=== PATIENT | male | born 1995 | race Caucasian/White ===

== ENCOUNTER 2017-12-24 13:40 | Emergency (ER) | payer BC ==
[2017-12-24] MEDS ORDERED: Sodium Chloride 0.9% 1,000 ML IV STA (13:54)
[2017-12-24] MEDS ORDERED: Sodium Chloride 0.9% 10 ML Syringe FLUSH PRN (13:54)
[2017-12-24] MEDS ORDERED: Ondansetron 4 MG/2 ML SDV IVPUSH ONE (13:54)
--- NOTE | 2017-12-24 14:50 | EDM.PDOC ---
ED HPI GENERAL MEDICAL PROBLEM - General Chief Complaint: Neurological Problem Stated Complaint: DIZZY,LIGHT HEADED AND ABD PAIN Time Seen by Provider: 12/24/17 13:48 Source of Information: Reports: Patient History Limitations: Reports: No Limitations - History of Present Illness INITIAL COMMENTS - FREE TEXT/NARRATIVE: The patient presents with dizziness, lightheaded, nausea, vomiting and lower abdominal pain. 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 He said this all started after 11 today. He has no fever but he does have chills. He has no headache, ear pain, ringing in his ears or vision changes. He has no chest pain. He has some lower abdominal pain. He has no dysuria. He has no medical problems. He still has his gallbladder and appendix. He has not been in contact with anyone who has been sick as far as he knows. He did eat some gas station food this morning but it tasted okay. Onset: Gradual Duration: Hour(s): Location: Reports: Abdomen Quality: Reports: Ache Severity: Mild Improves with: Reports: None Worsens with: Reports: None Associated Symptoms: Reports: Fever/Chills, Nausea/Vomiting. Denies: Confusion , Chest Pain, Cough, Headaches, Shortness of Breath Abdomen Pain Score (Numeric/FACES): 4 - Related Data Allergies Allergy/AdvReac Type Severity Reaction Status Date / Time cefprozil [From Cefzil] Allergy Nausea and Verified 12/24/17 13:52 Vomiting Home Meds: Home Meds Ondansetron [Zofran ODT] 4 mg PO Q6H PRN #20 tab.dis 12/24/17 [Rx] Past Medical History - Past Surgical History HEENT Surgical History: Reports: Oral Surgery Social & Family History - Tobacco Use Smoking Status *Q: Never Smoker - Caffeine Use Caffeine Use: Reports: Energy Drinks, Soda - Recreational Drug Use Recreational Drug Use: No ED ROS GENERAL - Review of Systems Review Of Systems: See Below Constitutional: Reports: Chills, Malaise, Weakness. Denies: Fever HEENT: Reports: No Symptoms Respiratory: Reports: No Symptoms Cardiovascular: Reports: Lightheadedness. Denies: Chest Pain Endocrine: Reports: No Symptoms GI/Abdominal: Reports: Abdominal Pain, Nausea, Vomiting. Denies: Diarrhea : Reports: No Symptoms Musculoskeletal: Reports: No Symptoms ED EXAM, NEURO - Physical Exam Exam: See Below Exam Limited By: No Limitations General Appearance: Alert, No Apparent Distress Ears: Normal External Exam Nose: Normal Inspection Head Exam: Atraumatic, Normocephalic Neck: Normal Inspection Respiratory/Chest: No Respiratory Distress, Lungs Clear, Normal Breath Sounds Cardiovascular: Regular Rate, Rhythm, No Edema, No Murmur GI/Abdominal: Soft, No Organomegaly, No Mass, Tender (Mild tenderness to the lower abdomen) Neurological: Alert, No Motor/Sensory Deficits, Oriented x 3 EKG INTERPRETATION EKG Date: 12/24/17 Time: 14:59 Rhythm: NSR Rate (Beats/Min): 92 [place]: RAD-Right [place] Deviation P-Wave: Present QRS: Normal ST-T: Normal QT: Normal Course - Vital Signs Last Recorded V/S: Last Vital Signs Temp 99.1 F 12/24/17 13:48 Pulse 83 12/24/17 13:48 Resp 20 12/24/17 13:48 BP 133/83 12/24/17 13:48 Pulse Ox 99 12/24/17 13:48 - Orders/Labs/Meds Orders: Active Orders 24 hr Category Date Time Status EKG Documentation Completion [RC] ASDIRECTED Care 12/24/17 14:41 Active Peripheral IV Care [RC] . DIRECTED Care 12/24/17 13:54 Active UA W/MICROSCOPIC [URIN] Stat Lab 12/24/17 13:54 Stop Req Sodium Chloride 0.9% [Saline Flush] Med 12/24/17 13:54 Active 10 ml FLUSH ASDIRECTED PRN ED Antiemetic Medication Reflex [OM.PC] Stat Oth 12/24/17 13:54 Ordered Peripheral IV Insertion Adult [OM.PC] Stat Oth 12/24/17 13:54 Ordered EKG 12 Lead [EK] Stat Ther 12/24/17 14:40 Ordered Medication Orders Sodium Chloride (Saline Flush) 10 ml FLUSH ASDIRECTED PRN PRN Reason: Keep Vein Open Last Admin: 12/24/17 15:05 Dose: 10 ml Labs: Laboratory Tests 12/24/17 12/24/17 Range/Units 15:00 15:00 WBC 11.66 H (4.23-9.07) K/mm3 RBC 5.11 (4.63-6.08) M/mm3 Hgb 15.3 (13.7-17.5) gm/L Hct 44.7 (40.1-51.0) % MCV 87.5 (79.0-92.2) fl MCH 29.9 (25.7-32.2) pg MCHC 34.2 (32.2-35.5) g/dl RDW Std Deviation 40.2 (35.1-43.9) fL Plt Count 229 (163-337) K/mm3 MPV 10.9 (9.4-12.3) fl Neut % (Auto) 87.7 H (34.0-67.9) % Lymph % (Auto) 4.6 L (21.8-53.1) % [place] % (Auto) 6.9 (5.3-12.2) % Eos % (Auto) 0.4 L (0.8-7.0) Baso % (Auto) 0.2 (0.1-1.2) % Neut # (Auto) 10.23 H (1.78-5.38) K/mm3 Lymph # (Auto) 0.54 L (1.32-3.57) K/mm3 Coleman # (Auto) 0.80 (0.30-0.82) K/mm3 Eos # (Auto) 0.05 (0.04-0.54) K/mm3 Baso # (Auto) 0.02 (0.01-0.08) K/mm3 Manual Slide Review Normal smear Sodium 140 (136-145) mEq/L Potassium 4.3 (3.5-5.1) mEq/L Chloride 104 (98-107) mEq/L Carbon Dioxide 25 (21-32) mEq/L Anion Gap 15.3 H (5-15) BUN 18 (7-18) mg/dL Creatinine 1.3 (0.7-1.3) mg/dL Est Cr Clr Drug Dosing 98.66 mL/min Estimated GFR (MDRD) > 60 (>60) mL/min BUN/Creatinine Ratio 13.8 L (14-18) Glucose 103 (74-106) mg/dL Calcium 9.3 (8.5-10.1) mg/dL Total Bilirubin 0.7 (0.2-1.0) mg/dL AST 22 (15-37) U/L ALT 50 (16-63) U/L Alkaline Phosphatase 82 (46-116) U/L Total Protein 7.7 (6.4-8.2) g/dl Albumin 4.3 (3.4-5.0) g/dl Globulin 3.4 gm/dL Albumin/Globulin Ratio 1.3 (1-2) Lipase 132 (73-393) U/L Meds: Medications Generic Name Dose Route Start Last Admin Trade Name Freq PRN Reason Stop Dose Admin Sodium Chloride 10 ml 12/24/17 13:54 12/24/17 15:05 Saline Flush FLUSH 10 ml ASDIRECTED PRN Administration Keep Vein Open Discontinued Medications Generic Name Dose Route Start Last Admin Trade Name Freq PRN Reason Stop Dose Admin Sodium Chloride 1,000 mls @ 1,000 mls/hr 12/24/17 13:54 12/24/17 15:04 Normal Saline IV 12/24/17 14:53 1,000 mls/hr .BOLUS STA Administration Ondansetron HCl 4 mg 12/24/17 13:54 12/24/17 15:05 Zofran IVPUSH 12/24/17 13:55 4 mg ONETIME ONE Administration - Re-Assessments/Exams Free Text/Narrative Re-Assessment/Exam: 12/24/17 14:54 I ordered an IV NS 1L bolus, zofran 4mg IV, labs, and UA. 12/24/17 16:18 His WBC is a little elevated at 11.66. His anion gap is slightly elevated at 15.3. He vomited again and he feels much better. I will give him some zofran and discharge him home. 12/24/17 16:20 His EKG looks good. Departure - Departure Time of Disposition: 16:20 Disposition: Home, Self-Care 01 Condition: Good Clinical Impression: Lightheaded Nausea & vomiting Qualifiers: Vomiting type: unspecified Vomiting Intractability: non-intractable Qualified Code(s): R11.2 - Nausea with vomiting, unspecified - Discharge Information Prescriptions: Ondansetron [Zofran ODT] 4 mg PO Q6H PRN #20 tab.dis PRN Reason: Nausea\vomiting Referrals: PCP,None [Primary Care Provider] - Isis Javed [employer] [ED Midlevel Provider] - 1 Week Forms: ED Department Discharge Additional Instructions: Drink plenty of fluids. Take the zofran every 6 hours as needed for nausea and vomiting. Please return if you have more pain or if the pain moves to the right lower abdomen. - My Orders Last 24 Hours: My Active Orders 12/24/17 13:54 Peripheral IV Care [RC] . DIRECTED UA W/MICROSCOPIC [URIN] Stat Sodium Chloride 0.9% [Saline Flush] 10 ml FLUSH ASDIRECTED PRN ED Antiemetic Medication Reflex [OM.PC] Stat Peripheral IV Insertion Adult [OM.PC] Stat 12/24/17 14:40 EKG 12 Lead [EK] Stat 12/24/17 14:41 EKG Documentation Completion [RC] ASDIRECTED - Assessment/Plan Last 24 Hours: My Active Orders 12/24/17 13:54 Peripheral IV Care [RC] . DIRECTED UA W/MICROSCOPIC [URIN] Stat Sodium Chloride 0.9% [Saline Flush] 10 ml FLUSH ASDIRECTED PRN ED Antiemetic Medication Reflex [OM.PC] Stat Peripheral IV Insertion Adult [OM.PC] Stat 12/24/17 14:40 EKG 12 Lead [EK] Stat 12/24/17 14:41 EKG Documentation Completion [RC] ASDIRECTED
== END 2017-12-24 16:40 | disposition home or self-care (01) ==
LOC: JD.ED 13:40
DX: R42 Dizziness and giddiness (principal); R11.2 Nausea with vomiting, unspecified; Z88.1 Allergy status to other antibiotic agents
CPT/HCPCS: 36415; 80053; 83690; 85025; 93005; 96361; 96374; 99284; J2405; J7040; J7050; 93010

== ENCOUNTER 2020-09-01 20:22 | Emergency (ER) | payer BC ==
[2020-09-01] MEDS ORDERED: Ketorolac 60 MG/2 ML SDV IM ONE (20:43)
[2020-09-01] MEDS ORDERED: Ibuprofen 600 MG Tab PO ONE (20:46)
--- NOTE | 2020-09-01 20:48 | EDM.PDOC ---
ED HPI GENERAL MEDICAL PROBLEM - General Chief Complaint: Lower Extremity Injury/Pain Stated Complaint: FOOT INJURY Time Seen by Provider: 09/01/20 20:32 Source of Information: Reports: Patient, RN Notes Reviewed History Limitations: Reports: No Limitations - History of Present Illness INITIAL COMMENTS - FREE TEXT/NARRATIVE: Patient is a 24-year-old male who presents to the ED for evaluation of a right foot/ankle injury. Patient notes that immediately prior to arrival to the ER, he was playing volleyball and he landed on his right foot/ankle wrong. He notes he was not able to bear weight after this. He is not having any numbness or tingling distal to the injury. There is a moderate amount of swelling to the right lateral midfoot, near the ankle joint. He notes that this seems to be where the most of his pain is. He did not take anything for pain management prior to coming to the ER. He denied any previous ankle injury. Patient denies any other sick-like symptoms, fever/chills, cough/shortness of breath, nausea/vomiting/diarrhea. Right Foot Pain Score (Numeric/FACES): 3 - Related Data Allergies Allergy/AdvReac Type Severity Reaction Status Date / Time cefprozil [From Cefzil] Allergy Nausea and Verified 09/01/20 20:33 Vomiting Home Meds: Home Meds Acetaminophen/HYDROcodone [[place] 325-5 MG] 1 tab PO Q6H PRN #15 tablet 09/01/20 [Rx] Past Medical History - Past Health History Medical/Surgical History: Denies Medical/Surgical History - Past Surgical History HEENT Surgical History: Reports: Oral Surgery Social & Family History - Tobacco Use Tobacco Use Status *Q: Never Tobacco User Second Hand Smoke Exposure: No - Caffeine Use Caffeine Use: Reports: Energy Drinks, Soda - Recreational Drug Use Recreational Drug Use: No Review of Systems - Review of Systems Review Of Systems: Comprehensive ROS is negative, except as noted in HPI. ED EXAM, GENERAL - Physical Exam Exam: See Below Exam Limited By: No Limitations General Appearance: Alert, WD/WN, No Apparent Distress Respiratory/Chest: No Respiratory Distress, Lungs Clear, Normal Breath Sounds, No Accessory Muscle Use, Chest Non-Tender Cardiovascular: Normal Peripheral Pulses, Regular Rate, Rhythm, No Edema Extremities: Normal Capillary Refill, Limited Range of Motion (of right ankle/foot, mild amount of swelling to right lateral midfoot near ankle joint) Neurological: Alert, Oriented, Normal Cognition, No Motor/Sensory Deficits Psychiatric: Normal Affect, Normal Mood Skin Exam: Warm, Dry, Intact, Normal Color, No Rash Course - Vital Signs Last Recorded V/S: Last Vital Signs Temp 96.9 F 09/01/20 20:31 Pulse 100 09/01/20 20:31 Resp 16 09/01/20 20:31 BP 151/90 H 09/01/20 20:31 Pulse Ox 97 09/01/20 20:31 - Orders/Labs/Meds Orders: Active Orders 24 hr Category Date Time Status Ankle Min 3V Rt [CR] Stat Exams 09/01/20 20:41 Ordered Foot 2V Rt [CR] Stat Exams 09/01/20 20:41 Ordered Meds: Medications Discontinued Medications Generic Name Dose Route Start Last Admin Trade Name Freq PRN Reason Stop Dose Admin Ibuprofen 600 mg 09/01/20 20:46 09/01/20 20:57 Motrin PO 09/01/20 20:47 600 mg ONETIME ONE Administration Ketorolac Tromethamine 60 mg 09/01/20 20:43 09/01/20 20:47 Toradol IM 09/01/20 20:44 Not Given ONETIME ONE - Re-Assessments/Exams Free Text/Narrative Re-Assessment/Exam: 09/01/20 20:47 Patient presents to the ED for his right foot/ankle injury. We will get x-rays at this time, patient was wanting something for pain management I did offer her IM Toradol however he states he is deathly afraid of needles and is requesting oral meds. 600 mg p.o. ibuprofen has been ordered. 09/01/20 21:12 X-rays have been obtained, there does appear to be fifth metatarsal fracture of the patient's right foot however, the patient's ankle x-ray appears to be within normal limits. We will treat with a walking boot for immobilization, and keep him nonweightbearing with crutches. We will have him follow-up with Dr. Taylor, or another orthopedic provider for further evaluation and management. Departure - Departure Time of Disposition: 21:14 Disposition: Home, Self-Care 01 Condition: Good Clinical Impression: Fracture of fifth metatarsal bone of right foot Qualifiers: Encounter type: initial encounter Fracture type: closed Fracture alignment: nondisplaced Qualified Code(s): S92.354A - Nondisplaced fracture of fifth metatarsal bone, right foot, initial encounter for closed fracture - Discharge Information *PRESCRIPTION DRUG MONITORING PROGRAM REVIEWED*: No *COPY OF PRESCRIPTION DRUG MONITORING REPORT IN PATIENT GUERDA: No Instructions: Metatarsal Fracture Referrals: PCP,None [Primary Care Provider] - Forms: ED Department Discharge, ED Return to Work/School Form Additional Instructions: You have been evaluated in the ED for your right foot/ankle injury. Your x-ray demonstrated a 5th metatarsal fracture. This is a bone in your midfoot. Treatment for this is to immobilize the area with a walking boot, and keep you nonweightbearing with crutches, until Ortho states otherwise. Just because you were placed into a walking boot, does not mean that you can in fact walk on the affected foot. If you continue to walk on the affected limb even with the walking boot, you are putting yourself at high risk for nonunion of the fracture and possible surgical intervention. Please use ice as tolerated to the affected area. You may elevate the affected area to provide further relief from swelling. You may take Tylenol 500 mg or ibuprofen 600mg q6 hrs for pain relief. Please do so until you have a tolerable level of pain with activity. Do not exceed 4000mg Tylenol, Do not exceed 3200mg ibuprofen in a 24 hour time period. You were given a prescription for a strong pain medication, hydrocodone/acetaminophen 5/325, please take 1 tab every 6 hours as needed for pain not relieved by Tylenol or ibuprofen alone. Please note this does contain Tylenol in it, so do not take more than 4000 mg in a 24-hour time span. These medications can be addictive, so please take as few as possible to achieve adequate pain control. These meds can also be quite constipating, recommend that you increase your oral fluid intake and take a stool softener like MiraLAX while taking these medications. Please call Ortho for follow-up and further evaluation Dr. Taylor is our orthopedic surgeon, his office number is [phone]. Please call and set up an appointment as soon as possible for further management. Please return to ED if your symptoms should change or worsen. Sepsis Event Note (ED) - Evaluation Sepsis Screening Result: No Definite Risk - Focused Exam Vital Signs: Vital Signs Temp Pulse Resp BP Pulse Ox 09/01/20 20:31 96.9 F 100 16 151/90 H 97 - My Orders Last 24 Hours: My Active Orders 09/01/20 20:41 Ankle Min 3V Rt [CR] Stat Foot 2V Rt [CR] Stat - Assessment/Plan Last 24 Hours: My Active Orders 09/01/20 20:41 Ankle Min 3V Rt [CR] Stat Foot 2V Rt [CR] Stat
--- NOTE | 2020-09-02 07:43 | CR ---
Right ankle: 4 views of the right ankle were obtained. Comparison: No prior ankle study is available. Small calcification is seen at the lateral midfoot. This may represent a minimal cortical avulsion fracture. Ankle mortise is symmetric. Additional fracture is seen within the proximal diaphysis of the fifth metatarsal. Impression: 1. Fracture within the proximal diaphysis of the fifth metatarsal. 2. Small cortical avulsion fracture off the lateral midfoot. Diagnostic code #3
--- NOTE | 2020-09-02 07:43 | CR ---
Right foot: 2 views of the right foot were obtained. Comparison: No previous foot studies available. Nondisplaced fracture is noted within the proximal diaphysis of the fifth metatarsal. Small calcification is noted off the distal calcaneus on the lateral view presumably due to minimal avulsion fracture off the cortex. No additional abnormality is appreciated. Impression: 1. Fractures as noted above. Diagnostic code #3
== END 2020-09-01 21:50 | disposition home or self-care (01) ==
LOC: JD.ED 20:22
DX: S92.354A Nondisplaced fracture of fifth metatarsal bone, right foot, initial encounter for closed fracture (principal); Z88.1 Allergy status to other antibiotic agents; X58.XXXA Exposure to other specified factors, initial encounter; Y93.68 Activity, volleyball (beach) (court)
CPT/HCPCS: 73610; 73620; 99283; A9270

== ENCOUNTER 2021-01-14 21:56 | Emergency (ER) | payer BC ==
--- NOTE | 2021-01-14 22:10 | EDM.PDOC ---
ED HPI GENERAL MEDICAL PROBLEM - General Chief Complaint: Lower Extremity Injury/Pain Stated Complaint: R FOOT INJURY Time Seen by Provider: 01/14/21 21:58 Source of Information: Reports: Patient, RN Notes Reviewed History Limitations: Reports: No Limitations - History of Present Illness INITIAL COMMENTS - FREE TEXT/NARRATIVE: Patient is a 25-year-old male presenting to the emergency part with complaints of pain to his right foot. Said that he was running while playing softball when his foot gave out. He is having pain overlying the area of the fifth metatarsal. He had a fracture to this area back in August. States he was nonweightbearing on it for 4 weeks and that he was told that healed well. He was able to bear weight after the injury, however it is uncomfortable. Right Feet Pain Score (Numeric/FACES): 8 - Related Data Allergies Allergy/AdvReac Type Severity Reaction Status Date / Time cefprozil [From Cefzil] Allergy Nausea and Verified 01/14/21 22:19 Vomiting Home Meds: Home Meds . [No Known Home Meds] 01/14/21 [History] Past Medical History - Past Health History Medical/Surgical History: Denies Medical/Surgical History - Past Surgical History HEENT Surgical History: Reports: Oral Surgery Social & Family History - Caffeine Use Caffeine Use: Reports: Energy Drinks, Soda Review of Systems - Review of Systems Review Of Systems: Comprehensive ROS is negative, except as noted in HPI. ED EXAM, GENERAL - Physical Exam Exam: See Below Exam Limited By: No Limitations General Appearance: Alert, WD/WN, No Apparent Distress Respiratory/Chest: No Respiratory Distress, Lungs Clear, Normal Breath Sounds, No Accessory Muscle Use, Chest Non-Tender Cardiovascular: Normal Peripheral Pulses, Regular Rate, Rhythm, No Edema, No Gallop, No JVD, No Murmur, No Rub Extremities: Other (Mild tenderness to palpation to the lateral aspect of the right foot overlying the fifth metatarsal. No swelling, ecchymosis, or deformity noted. CMS intact distally.) Neurological: Alert, Oriented, CN II-XII Intact, Normal Cognition, Normal Gait, Normal Reflexes, No Motor/Sensory Deficits Psychiatric: Normal Affect, Normal Mood Skin Exam: Warm, Dry, Intact, Normal Color, No Rash Course - Vital Signs Last Recorded V/S: Last Vital Signs Temp 97.7 F 01/14/21 22:04 Pulse 101 H 01/14/21 22:04 Resp 18 01/14/21 22:04 BP 142/87 H 01/14/21 22:04 Pulse Ox 93 L 01/14/21 22:04 - Re-Assessments/Exams Free Text/Narrative Re-Assessment/Exam: 01/14/21 22:28 xray of the right foot reviewed by myself and Dr. Petit shows an old fracture of the 5th metatarsal with no acute fractures. [place] wrap applied to foot. Patient does have his old crutches here. Weightbearing as tolerated for the next few days. If he continues to have pain, he should follow-up with Dr. Taylor. Discharge instructions as documented. Departure - Departure Time of Disposition: 22:29 Disposition: Home, Self-Care 01 Condition: Good Clinical Impression: Foot sprain Qualifiers: Encounter type: initial encounter Laterality: right Qualified Code(s): S93.601A - Unspecified sprain of right foot, initial encounter - Discharge Information *PRESCRIPTION DRUG MONITORING PROGRAM REVIEWED*: No *COPY OF PRESCRIPTION DRUG MONITORING REPORT IN PATIENT GUERDA: No Instructions: Foot Sprain Referrals: Ron Taylor MD [Physician] - Forms: ED Department Discharge, ED Return to Work/School Form Additional Instructions: You were seen in the emergency department today for pain to your right foot. X- rays are completed and showed healing old fracture but no new fractures. You likely sprained your foot. [place] wrap has been applied for comfort. You may bear weight as tolerated. If you continue to have pain, recommend follow-up with Dr. Taylor. Recommend intermittent ice and elevation for the next few days. You may use Tylenol or ibuprofen as needed. Return to ER as needed.
--- NOTE | 2021-01-15 07:46 | CR ---
Right foot: 4 views of the right foot were obtained. Comparison: Prior right foot study of 09/01/20. Fracture is noted within the proximal fifth metatarsal which shows bridging callus. Fracture is noted on prior study. Joint spaces are preserved. No acute fracture, dislocation or other bony abnormality is appreciated. Impression: 1. Old fracture as noted above. 2. No acute osseous finding seen on right foot exam. Diagnostic code #2
== END 2021-01-14 22:42 | disposition home or self-care (01) ==
LOC: JD.ED 21:56
DX: S93.601A Unspecified sprain of right foot, initial encounter (principal); Y93.02 Activity, running; Z88.1 Allergy status to other antibiotic agents; X50.9XXA Other and unspecified overexertion or strenuous movements or postures, initial encounter
CPT/HCPCS: 73630-26-RT; 73630-RT; 99282; 99283

== ENCOUNTER 2022-03-08 09:40 | Emergency (ER) | payer BC, OTHER ==
[2022-03-08] MEDS ORDERED: EPINEPHrine 1 MG/ML SDV IM ONE (10:05)
[2022-03-08] MEDS ORDERED: methylPREDNISolone Sodium Succinate 125 MG/2 ML SDV IVPUSH ONE (10:06)
[2022-03-08] MEDS ORDERED: Famotidine 20 MG/2 ML SDV IVPUSH ONE (10:06)
[2022-03-08] MEDS ORDERED: diphenhydrAMINE 50 MG/ML SDV IVPUSH ONE (10:06)
== END 2022-03-08 11:55 | disposition home or self-care (01) ==
LOC: JD.ED 09:40
DX: T63.441A Toxic effect of venom of bees, accidental (unintentional), initial encounter (principal); Z91.030 Bee allergy status; Z88.8 Allergy status to other drugs, medicaments and biological substances; Z79.899 Other long term (current) drug therapy; Z86.16 Personal history of COVID-19
CPT/HCPCS: 96372; 96374; 96375; 99283; J0171; J1200; J2930; J3490

== ENCOUNTER 2023-11-26 03:33 | Emergency (ER) | payer BC, OTHER ==
[2023-11-26] MEDS: Aspirin 81 MG Tab.Chew PO ONE (04:00)
[2023-11-26] MEDS: Sodium Chloride 0.9% 10 ML Syringe FLUSH PRN (04:04)
[2023-11-26 04:13] LABS: BASOPHILS ABSOLUTE AUTO 0.1 K/mm3 (0.0-0.2); EOSINOPHILS ABSOLUTE AUTO 0.3 K/mm3 (0.0-0.4); EOSINOPHILS PERCENT AUTO 4.1 % (0.0-6.0); HEMATOCRIT 43.3 % (42.0-52.0); HEMOGLOBIN 15.1 gm/dl (14.0-18.0); IMMATURE GRAN ABSOLUTE AUTO 0.02 K/mm3 (0.00-0.05); IMMATURE GRAN PERCENT AUTO 0.3 % (0.0-0.4); LYMPHOCYTES ABSOLUTE AUTO 2.3 K/mm3 (1.0-4.8); LYMPHOCYTES PERCENT AUTO 38.1 % (24.0-44.0); MEAN CORPUSCULAR HEMOGLOBIN 30.2 pg (28.0-32.0); MEAN CORPUSCULAR HGB CONC 34.9 g/dl (32.0-36.0); MEAN CORPUSCULAR VOLUME 86.6 fl (83.0-99.0); MEAN PLATELET VOLUME 10.5 fl (9.4-12.4); MONOCYTES ABSOLUTE AUTO 0.5 K/mm3 (0.0-0.8); MONOCYTES PERCENT AUTO 7.6 % (0.0-8.0); NEUTROPHILS PERCENT AUTO 48.9 % (41.0-71.0); PLATELET COUNT,PLT 219 K/mm3 (150-400); WHITE BLOOD CELL COUNT,WBC 6.09 K/mm3 (3.9-11.3)
[2023-11-26 04:37] LABS: A/G RATIO 1.2 (1-2); ALBUMIN 4.1 g/dl (3.4-5.0); ANION GAP 15.2 (5-15); BILIRUBIN TOTAL 0.5 mg/dL (0.2-1.0); CALCIUM 9.6 mg/dL (8.5-10.1); CREATININE 1.2 mg/dL (0.7-1.3); EST CRCL DRUG DOSING (CG) 101.49 mL/min; PROTEIN TOTAL,TP 7.5 g/dl (6.4-8.2)
[2023-11-26 04:42] LABS: POTASSIUM,K 4.2 mEq/L (3.5-5.1)
== END 2023-11-26 05:03 | disposition home or self-care (01) ==
LOC: JD.ED 03:33
DX: R07.89 Other chest pain (principal); Z86.16 Personal history of COVID-19; Z79.899 Other long term (current) drug therapy; Z88.8 Allergy status to other drugs, medicaments and biological substances; Z91.030 Bee allergy status
CPT/HCPCS: 36415; 71045; 80053; 84484; 85025; 85379; 93005; 99285; A9270; J3490

== ENCOUNTER 2024-03-20 20:13 | Emergency (ER) | payer BC ==
[2024-03-20] MEDS: EPINEPHrine 1 MG/ML SDV IM ONE (20:37)
[2024-03-20] MEDS: diphenhydrAMINE 50 MG/ML SDV IVPUSH ONE (20:38)
[2024-03-20] MEDS: Famotidine 20 MG/2 ML SDV IVPUSH ONE (20:38)
[2024-03-20] MEDS: methylPREDNISolone Sodium Succinate 125 MG/2 ML SDV IVPUSH ONE (20:38)
== END 2024-03-20 22:30 | disposition home or self-care (01) ==
LOC: JD.ED 20:13
DX: T63.461A Toxic effect of venom of wasps, accidental (unintentional), initial encounter (principal); Z86.16 Personal history of COVID-19; Z91.030 Bee allergy status; Z88.1 Allergy status to other antibiotic agents
CPT/HCPCS: 96372; 96374; 96375; 99282; J0171; J1200; J2919; J3490; 99284

== ENCOUNTER 2025-05-09 13:16 | Emergency (ER) | payer BC, OTHER ==
[2025-05-09] MEDS: diphenhydrAMINE 50 MG/ML SDV IVPUSH ONE (13:29)
[2025-05-09] MEDS: methylPREDNISolone Sodium Succinate 125 MG/2 ML SDV IVPUSH ONE (13:29)
== END 2025-05-09 14:37 | disposition home or self-care (01) ==
LOC: JD.ED 13:16
DX: T63.441A Toxic effect of venom of bees, accidental (unintentional), initial encounter (principal); Z88.8 Allergy status to other drugs, medicaments and biological substances; Z91.030 Bee allergy status; Z79.899 Other long term (current) drug therapy
CPT/HCPCS: 96374; 96375; 99281; J1200; J2919; 99283

== ENCOUNTER 2025-05-21 17:33 | Emergency (ER) | payer OTHER ==
[2025-05-21] MEDS ORDERED: Sodium Chloride 0.9% 10 ML Syringe FLUSH PRN (18:08)
[2025-05-21 18:16] LABS: BASOPHILS ABSOLUTE AUTO 0.1 K/mm3 (0.0-0.2); BASOPHILS PERCENT AUTO 0.7 % (0.0-1.0); EOSINOPHILS ABSOLUTE AUTO 0.1 K/mm3 (0.0-0.4); EOSINOPHILS PERCENT AUTO 1.0 % (0.0-6.0); IMMATURE GRAN ABSOLUTE AUTO 0.03 K/mm3 (0.00-0.05); IMMATURE GRAN PERCENT AUTO 0.3 % (0.0-0.4); LYMPHOCYTES ABSOLUTE AUTO 2.0 K/mm3 (1.0-4.8); LYMPHOCYTES PERCENT AUTO 18.2 % (24.0-44.0); MEAN PLATELET VOLUME 10.9 fl (9.4-12.4); MONOCYTES ABSOLUTE AUTO 1.1 K/mm3 (0.0-0.8); MONOCYTES PERCENT AUTO 10.2 % (0.0-8.0); NEUTROPHILS ABSOLUTE AUTO 7.5 K/mm3 (1.8-7.7); NEUTROPHILS PERCENT AUTO 69.6 % (41.0-71.0); NRBC ABSOLUTE 0.00 (0.00-0.02); NRBC PERCENT 0.0 % (0.0-0.2); PLATELET COUNT,PLT 231 K/mm3 (150-400); RED BLOOD CELL COUNT 5.00 M/mm3 (4.52-5.90); WHITE BLOOD CELL COUNT,WBC 10.70 K/mm3 (3.9-11.3)
[2025-05-21 18:28] LABS: A/G RATIO 1.1 (1-2); ALANINE AMINOTRANSFERASE,ALT 47.0 U/L (16-63); ASPARTATE AMNIOTRANSFERASE,AST 23.0 U/L (15-37); BILIRUBIN TOTAL 0.9 mg/dL (0.2-1.0); BLOOD UREA NITROGEN,BUN 15.0 mg/dL (7-18); CARBON DIOXIDE,CO2 26.0 mEq/L (21-32); CHLORIDE,CL 106.0 mEq/L (98-107); CREATININE 1.1 mg/dL (0.7-1.3); EST CRCL DRUG DOSING (CG) 109.74 mL/min; ESTIMATED GFR 94.0 mL/min (>60); GLUCOSE RANDOM 90.0 mg/dL (70-99); POTASSIUM,K 4.0 mEq/L (3.5-5.1); PROTEIN TOTAL,TP 7.8 g/dl (6.4-8.2); SODIUM,NA 141.0 mEq/L (136-145); TROPONIN I HIGH SENSITIVITY 19.0 pg/mL (<=76)
== END 2025-05-21 19:11 | disposition home or self-care (01) ==
LOC: JD.ED 17:33
DX: J40 Bronchitis, not specified as acute or chronic (principal); J01.90 Acute sinusitis, unspecified; Z91.030 Bee allergy status; Z88.8 Allergy status to other drugs, medicaments and biological substances; Z86.16 Personal history of COVID-19
CPT/HCPCS: 36415; 71046; 71046-26; 80053; 84484; 85025; 87428-QW; 93005; 99285